=== PATIENT | male | born 1930 | race Caucasian/White ===

== ENCOUNTER 2016-11-11 02:34 | Emergency (ER) | payer OTHER, MEDICARE ==
[2016-11-11] MEDS ORDERED: NORMAL SALINE 10 ML SYRINGE FLUSH IVP PRN (02:47)
[2016-11-11] MEDS ORDERED: MAG HYDROX/AL HYDROX/SIMETH 30 ML SUSP PO ONE (02:47)
[2016-11-11] MEDS ORDERED: ASPIRIN 81 MG (BABY) CHEWABLE TABLET PO ONE (02:47)
[2016-11-11] MEDS ORDERED: fentaNYL Inj 100 MCG/2 ML VIAL IVP PRN (02:49)
[2016-11-11] MEDS ORDERED: FAMOTIDINE 20 MG TABLET PO ONE (02:51)
--- NOTE | 2016-11-11 02:51 | EKG ---
[address] [address] Measurements Intervals [place] Rate: 77 P: 39 MO: 129 QRS: 105 QRSD: 90 T: 68 QT: 374 QTc: 406 Interpretive Statements SINUS RHYTHM RIGHT AXIS DEVIATION [ Compared to ECG 06/17/2015 12:36:23 Right-axis deviation now present Electronically Signed On 11-11-16 15:16:43 MDT by Duy Beard [id number]
[2016-11-11 03:17] LABS: BASOPHILS # (AUTO) 0.03 10*3/UL; BASOPHILS % (AUTO) 0.4 % (0-1); EOSINOPHILS # (AUTO) 0.16 10*3/UL; EOSINOPHILS % (AUTO) 1.9 % (0-8); HEMATOCRIT 39.9 % (42.0-52.0); HEMOGLOBIN 13.4 g/dL (14.0-18.0); LYMPHOCYTES # (AUTO) 1.54 10*3/uL; MEAN CORPUSCULAR HEMOGLOBIN 30.4 PG (27-31); MEAN CORPUSCULAR HGB CONC 33.6 g/dL (33-37); MEAN CORPUSCULAR VOLUME 90.5 FL (80-90); MEAN PLATELET VOLUME 9.7 FL (7.4-12.2); MONOCYTES # (AUTO) 0.63 10*3/UL (0.3-0.8); MONOCYTES % (AUTO) 7.6 % (5-15); NEUTROPHILS # (AUTO) 5.86 10*3/UL; RED BLOOD COUNT 4.41 10^6/uL (4.70-6.10)
[2016-11-11 03:22] LABS: PLATELET MORPHOLOGY COMMENT NORMAL MORPHOLOGY (NORM); RBC MORPHOLOGY COMMENT NORMAL MORPHOLOGY (NORM); WBC MORPHOLOGY COMMENT NORMAL MORPHOLOGY (NORM)
--- NOTE | 2016-11-11 03:24 | PDOC ---
Chest Pain HPI - General Chief Complaint: Chest Pain Stated Complaint: CHEST PAIN Date Seen by Provider: 11/11/16 Time Seen by Provider: 02:35 - History of Present Illness Initial Comments: Patient is an 86-year-old male who presents to the emergency department with chief complaint of acute onset of epigastric right upper quadrant pain radiating into the substernal area. Patient has a significant history of coronary artery disease as well as biliary disease. 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 He states that he woke up at approximately 12:30 to 1:00 with a pain in his epigastric area that radiates into his substernal area. He states that now worse in the right upper quadrant. The patient states that he's been active at home taking care of the hay and bailing. He describes the pain as burning and cramping in nature. He denies any shortness of breath with this. Denies any radiation into his extremities or up his neck. He denies any dysuria or hematuria diarrhea or constipation. He is taking his medications as prescribed. - Patient Home Medications Home Medications: Home Medications Albuterol HFA Inhaler [Proair HFA Inhaler] 1 each IH BID 11/21/11 Amlodipine Besylate [Norvasc Tab] 5 mg PO DAILY 11/21/11 Cetirizine HCl [Zyrtec] 10 mg PO DAILY 11/21/11 Clopidogrel [Plavix Tab] 75 mg PO DAILY 11/21/11 Ezetimibe [Zetia Tab] 10 mg PO DAILY 11/21/11 Folic Acid 1 mg PO DAILY 11/21/11 Metoprolol Tartrate 100 mg PO BID 11/21/11 Mometasone/Formoterol [Dulera 200 Mcg/5 Mcg Inhaler] 13 gm IH BID 11/21/11 Naproxen Sodium 220 mg PO BID 11/21/11 Omeprazole 20 mg PO DAILY 11/21/11 Ramipril 10 mg PO DAILY 11/21/11 Spironolact/Hydrochlorothiazid [Spironolactone-Hctz 25-25 Tab] 1 each PO .MWF Tiotropium Jarratt [Spiriva] 18 mcg IH DAILY 11/21/11 Warfarin Sodium [Coumadin Tab] 5 mg PO DAILY 11/16/12 HYDROcodone/APAP 5/325 Tab [[place] 5/325 Tab] 1 - 2 tab PO Q4H PRN #18 tab - Patient Allergies Allergies/Adverse Reactions: Allergies Allergy/AdvReac Type Severity Reaction Status Date / Time Shellfish *RETIRED-01/15/12 Allergy Severe Anaphylaxis Verified 11/11/16 03:52 [Shellfish] erythromycin base AdvReac Mild DIARRHEA Verified 11/11/16 03:52 [Erythromycin Base] morphine AdvReac HALLUCINATI Verified 11/11/16 03:52 ONS cephlosporin Allergy Unknown Anaphylaxis Uncoded 11/11/16 03:52 EGG VACCINE Allergy Anaphylaxis Uncoded 11/11/16 03:52 Past Medical History - heen HEENT History: Cataracts Additional HEENT History: BILAT CATARACT SURG Cardiovascular History: Hypertension, Angina, Previous AL, CAD, Hyperlipidemia Additional Cardiovasular History: PE Respiratory History: Asthma, COPD Gastrointestinal History: GERD, GI Bleed, Colitis Genitourinary History: Recurrent UTI Additional Genitourinary History: TURP Endocrine History: Denies History Musculoskeletal History: Arthritis Prosthesis or Implant: Yes Additional Musculoskeletal History: HUMERAL NAIL Neurological History: Denies History Psychiatric History: Denies History History of Sexually Transmitted Diseases: No Cancer History: Denies History History of MDRO: No History of Other Communicable Diseases: No Alcohol Use: Occasionally Substance Use Type: None Previous Surgical History: Yes Anesthesia Reactions: No Significant Family History: No pertinent family hx ROS Constitution: REPORTS: Denies Symptoms Cardiovascular: REPORTS: Chest Pain Respiratory: REPORTS: Denies Resp Symptoms Neurological: REPORTS: Denies Neuro Symptoms Gastrointestinal: REPORTS: Abdominal Pain Endocrine: REPORTS: Denies Symptoms Musculoskeletal: REPORTS: Denies MS Symptoms Genitourinary: REPORTS: Denies Symptoms Eyes: REPORTS: Denies Symptoms ENT: REPORTS: Denies Symptoms Skin: REPORTS: Denies Skin Symptoms Lympathic: REPORTS: Denies Lympathic Symptoms Immunologic: POSITIVE: Denies Symptoms Psychiatric: POSITIVE: Denies Psych Symptoms Chest Pain PE - General Appearance General Appearance: REPORTS: Alert, Cooperative, No Acute Distress, No Evidence of Trauma - HEENT HEENT: POSITIVE: Head Inspection Nml, Eyes Inspection Nml, Oral/Dental Inspect. Nml, Pharynx Inspect. Nml, PERRL, EOMI - Neck Neck: REPORTS: Normal Inspection, No Carotid Bruit - Respiratory Respiratory: REPORTS: No Respiratory Distress, Breath Sounds Normal, Chest Non- Tender - Cardiovascular Cardiovascular: REPORTS: Regular Rate and Rhythm, Heart Sounds Normal, Equal Pulses, Strong Pulses, No Murmur, No Gallop, No Friction Rub, No JVD - Abdomen Abdomen: Soft: (All Quadrants), No Guarding: (All Quadrants), No Rebound: (All Quadrants), No Rigidity: (All Quadrants), Tenderness Noted: (RUQ) (tenderness in the epigastric and right upper quadrant) - Skin Skin: REPORTS: Intact, Normal For Race, Warm, Dry, No Rash - Extremities Extremity: Non-Tender: (All Extremities), Normal ROM: (All Extremities), Normal Inspection: (All Extremities) - Neurological / Psychological Neurological: POSITIVE: Oriented X3, 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 Ultrasound abdomen: No abnormal thickening of the gallbladder. No ductal dilatation. Sludge in the gallbladder. No pericholecystic fluid. Lab Results Reviewed: Yes Lab Results:: Laboratory Results 11/11/16 Range/Units 02:40 WBC 8.26 (4.8-10.8) 10^3/uL RBC 4.41 L (4.70-6.10) 10^6/uL Hgb 13.4 L (14.0-18.0) g/dL Hct 39.9 L (42.0-52.0) % MCV 90.5 H (80-90) FL MCH 30.4 (27-31) PG MCHC 33.6 (33-37) g/dL RDW Std Deviation 44.5 (39-50) fL RDW Coeff of Ame 13.8 (11.5-14.5) % Plt Count 217 (140-350) 10*3/uL MPV 9.7 (7.4-12.2) FL Immature Gran % (Auto) 0.5 (0-5) % Neut % (Auto) 71.0 (50-80) % Lymph % (Auto) 18.6 (10-50) % [place] % (Auto) 7.6 (5-15) % Eos % (Auto) 1.9 (0-8) % Baso % (Auto) 0.4 (0-1) % Immature Gran # (Auto) 0.04 10*3/UL Neut # (Auto) 5.86 10*3/UL Lymph # (Auto) 1.54 10*3/uL [place] # (Auto) 0.63 (0.3-0.8) 10*3/UL Eos # (Auto) 0.16 10*3/UL Baso # (Auto) 0.03 10*3/UL WBC Morphology Comment Normal morphology (NORM) Plt Morphology Comment Normal morphology (NORM) RBC Morph Comment Normal morphology (NORM) PT 26.1 H (9.7-11.4) secs INR 2.49 (0.00-5.90) N/A APTT 34.3 H (22.6-31.3) SECS Sodium 139 (135-145) meq/L Potassium 4.7 (3.8-5.2) meq/L Chloride 106 (98-112) meq/L Carbon Dioxide 24 (23-33) meq/L Anion Gap 9 (5-20) BUN 32 H (7-22) mg/dL Creatinine 1.1 (0.70-1.50) mg/dL Estimated GFR (>60 ml/min/1.73m(2)) BUN/Creatinine Ratio 29.09 H (6-20) Glucose 98 (78-110) mg/dL Calculated Osmolality 294.0 H (267-292) mOsm/kg Calcium 9.1 (8.7-10.7) mg/dL Total Bilirubin 0.5 (0.3-1.2) mg/dL AST 30 (21-57) IU/L ALT 37 (21-72) IU/L Alkaline Phosphatase 52 (38-126) IU/L Troponin I < 0.012 (< 0.040) ng/mL Total Protein 6.0 L (6.1-8.0) g/dL Albumin 3.6 (3.5-4.8) g/dL Globulin 2.4 L (2.50-4.10) g/dL Albumin/Globulin Ratio 1.50 (1.3-2.0) mg/g Lipase 195 (23-300) IU/L EKG Interpreted/Reviewed By Me:: Yes (normal sinus rhythm without ST or QT of normality) EKG Interpretation:: POSITIVE: Normal Sinus Rhythm - Patient's Progress Pain Medication Addressed: POSITIVE: Yes (Fentanyl) MDM / ED Course: An IV was established and the patient was connected to chicken sexer and closely observed in the emergency department. He was given 325 mg of aspirin empirically for ACS. Additionally he was given Pepcid and a GI cocktail of Maalox and lidocaine without significant improvement of his symptoms. Patient was given 50 g of fentanyl with improvement. A bedside echocardiogram was performed myself that revealed no pericardial effusion or significant wall motion abnormality. Additionally a ultrasound of the right upper quadrant revealed biliary sludge with out definitive gallbladder thickening. I could not accurately measure the biliary or Hepatic duct secondary to limitations in my ultrasound. Given the reproducible sonographic [place] sign, I did opt for an ultrasound of the hepatobiliary system that does not reveal any ductal dilatation or findings consistent with acute cholecystitis. Biliary sludge was noted. The patient's laboratory evaluation including a CBC CMP PTT INR troponin lipase did not reveal any contributing pathology. His EKG was normal sinus rhythm without ST or QT abnormality. Patient was given an additional 50 g of fentanyl with significant improvement of his pain. Patient's findings are most consistent with the diagnosis of biliary colic. However, given the patient 's significant cardiac history I cannot completely exclude acute coronary syndrome. I reiterated this to the patient and family and recommended hospitalization for cardiac evaluation. Both the patient and his family were very resistant against admission to the hospital. They state that they refused to have him admitted to this hospital. When I told the patient that it is impractical to transfer to a different facility for a chest pain rule out the patient agreed. He states that he would prefer to follow up with his plumber cub outpatient. I discussed these findings with the on-call plumber cub who agreed that if the patient would rather follow up outpatient he felt that that was reasonable. I recommended to the patient that he stay for 6 hour troponin, however the patient states that he felt much better and refused to stay and would like to return home. Additionally I discussed these findings with the on-call general surgeon at [facility] who agreed to evaluate the patient on an outpatient basis for biliary colic. Patient will be discharged home with [place] 5 10/11/2024 for breakthrough pain. I recommended low-fat low-protein diet. Patient will follow up with his plumber cub in the next 2-3 days and the surgeon next 3-5 days or he will return immediately to the emergency department if he describes as worsening pain shortness of breath blurred vision or syncope. Patient understands the plan of care and agrees patient's status tenuous at time of discharge Quality Measure Initiative: CP/AMI: POSITIVE: EKG, ASA Patient Care Time - Estimated PCT Patient Care Time (In Minutes): 270 Vital Signs - Recent Vital Signs Vital Signs: Vital Signs (Last 8 hours) Temp Pulse Pulse Resp BP BP Pulse Ox 11/11/16 06:05 68 18 136/83 93 11/11/16 02:34 97.3 F 77 18 152/80 92 Discharge Clinical Impression: Atypical chest pain, Gall bladder disease Condition: Good Prescriptions / Orders: HYDROcodone/APAP 5/325 Tab [[place] 5/325 Tab] 1 - 2 tab PO Q4H PRN #18 tab PRN Reason: Pain Patient Instructions Given at Discharge: Biliary Colic (ED) Additional Instructions: You have been diagnosed with biliary colic. Please adhere to a low, fat low protein diet. Follow-up with [facility] (Dr. Dos Santos - [address] [place] [id number]. [phone]) in the next 2-3 days for cardiac evaluation. Follow-up with [facility] (Dr. Jeffries - [address] [facility] [address]. [place] [address]. [phone]) in the next 3-5 days to arrange for outpatient evaluation for gallbladder surgery. Return immediately to the emergency department if your symptoms worsen. Follow Up With: Declan Jeffries [NON-STAFF] - ASHLYN PATEL [Primary Care Provider] -
[2016-11-11 03:35] LABS: BUN/CREATININE RATIO 29.09 (6-20); CALCIUM 9.1 mg/dL (8.7-10.7); SERUM ALBUMIN 3.6 g/dL (3.5-4.8)
--- NOTE | 2016-11-11 04:12 | DI ---
CLINICAL STATEMENT: Chest pain. COMPARISON: Chest radiograph dated 06/17/2015. TECHNIQUE: PA and lateral radiographs were obtained of the chest. FINDINGS: Linear, left basilar opacities are present. Right lung clear. No significant pleural effu jamarcus or pneumothorax. Mild cardiac enlargement is noted. Thoracic aorta tortuosity and atherosclerotic vascular disease. Multilevel thoracic degenerative changes. IMPRESSION: 1. Linear, left basilar opacities suggestive of scarring or atelectasis. Infiltrate can have a simil ar appearance. 2. Mild cardiac enlargement and prominence of the central pulmonary vascularity which may represent e damian pulmonary vascular congestion, no pleural effusion. COMMENT: Correlation with clinical exam requested.
[2016-11-11 04:27] VITALS: RESP 18; TEMP 97.3
[2016-11-11] MEDS ORDERED: fentaNYL Inj 100 MCG/2 ML VIAL IVP ONE (04:57)
--- NOTE | 2016-11-11 04:57 | DI ---
CLINICAL STATEMENT: RUQ Pain. COMPARISON: None available. TECHNIQUE: Sonographic images of the abdomen were obtained, and the images were submitted for interp retation. FINDINGS: Liver: 16.0 cm craniocaudal length. Echogenicity: Increased echotexture, probable mild steatosis. Gallbladder: No shadowing gallstones. Biliary sludge is present. Few linear echos are present in th e mid gallbladder (image 65). Gallbladder wall: Upper limits of normal, measuring 3mm. Negative sonographic [place] sign reported. Bile ducts: Intrahepatic ducts: Normal. Common duct: 7 mm, within normal limits for patients age. Pancreas: Obscured by bowel gas. Right kidney: Length: 11.2 cm. Mild cortical thinning, no hydronephrosis IMPRESSION: 1. No focal shadowing gallstone or focal gallbladder wall thickening. Probable gallbladder sludge is present. 2. Few linear echoes in the gallbladder lumen, likely artifact related to biliary sludge. Wall necro sis can have a similar appearance but is considered less likely. 3. Hepatic steatosis. NOTE: The interpreting Radiologist was not present at the time of ultrasound interrogation.
[2016-11-11] MEDS ORDERED: HYDROcodone-APAP 5 MG -325 MG TABLET PO PRN (05:38)
== END 2016-11-11 06:02 | disposition home or self-care (01) ==
LOC: ER 02:34
DX: K82.9 Disease of gallbladder, unspecified (principal); R07.89 Other chest pain; R10.11 Right upper quadrant pain; I10 Essential (primary) hypertension; I25.10 Atherosclerotic heart disease of native coronary artery without angina pectoris; R10.13 Epigastric pain
CPT/HCPCS: 71010; 76705; 80053; 83690; 84484; 85025; 85610; 85730; 93005; 93010; 96374; 96376; 99284 ×2; J3010